=== PATIENT | male | born 2000 | race Hispanic/Latino ===

== ENCOUNTER → 2021-05-05 | Day surgery (SDC) | payer OTHER ==
[2021-05-05 15:54] LABS: SARS-CoV-2 NAA Rapid Test Not Detected (NotDetected)
== END ==
LOC: CSHER/OP 14:41 → CSHERS 14:41 → CSHER/OP 14:41 → EDSTATUS 14:53
PROVIDERS: ATTEND Pathology Anatomic Pathology & Clinical Pathology
DX: Z20.822 Contact with and (suspected) exposure to COVID-19 (principal)
CPT/HCPCS: U0002